=== PATIENT | female | born 1945 | race African-American/Black ===

== ENCOUNTER 2017-06-03 18:52 | Emergency (ER) | payer OTHER ==
[~2017-06-03] VITALS: Ht 185.4 cm; Wt 66.0 kg
[2017-06-03 19:35] VITALS: BP 127/75
== END 2017-06-03 20:00 | disposition home or self-care (01) ==
LOC: ER 18:52
DX: S39.012A Strain of muscle, fascia and tendon of lower back, initial encounter (principal); M79.602 Pain in left arm; Y92.410 Unspecified street and highway as the place of occurrence of the external cause; E11.9 Type 2 diabetes mellitus without complications; Z88.0 Allergy status to penicillin
CPT/HCPCS: 99282

== ENCOUNTER 2017-11-07 15:30 | Emergency (ER) | payer OTHER ==
[~2017-11-07] VITALS: Ht 167.6 cm; Wt 65.0 kg
[2017-11-07 16:21] LABS: BASOPHILS % 0.8 % (0.0-2.0); EOSINOPHILS % 0.4 % (0.0-5.0); HEMATOCRIT. 40.3 % (36.0-48.0); LYMPHOCYTES % 32.7 % (20.0-50.0); MEAN CORPUSCULAR HEMOGLOBIN 23.6 pg (28.0-32.0); MEAN CORPUSCULAR VOLUME 73.3 fL (81.0-99.0); MEAN PLATELET VOLUME 9.1 fl (7.4-10.4); MONOCYTES % 5.4 % (2.0-8.0); NEUTROPHILS % 60.7 % (40.0-76.0); PLATELET 199 x1000/uL (130-400); RED CELL DISTRIBUTION WIDTH 16.3 % (11.6-14.6)
[2017-11-07 16:27] LABS: PROTHROMBIN TIME 10.6 sec (9.4-11.6)
[2017-11-07 16:29] LABS: CHLORIDE 109 mEq/L (98-107)
[2017-11-07 18:16] VITALS: BP 136/87
== END 2017-11-07 18:20 | disposition home or self-care (01) ==
LOC: ER 15:54
DX: R53.1 Weakness (principal); E78.00 Pure hypercholesterolemia, unspecified; E11.9 Type 2 diabetes mellitus without complications; I10 Essential (primary) hypertension; Z88.0 Allergy status to penicillin; Z86.73 Personal history of transient ischemic attack (TIA), and cerebral infarction without residual deficits
CPT/HCPCS: 36415; 70450; 80053; 83880; 84484; 85025; 85610; 93005; 99285

== ENCOUNTER 2018-02-20 19:23 | Emergency (ER) | payer OTHER ==
[~2018-02-20] VITALS: Ht 167.6 cm; Wt 63.6 kg
[2018-02-20 20:23] VITALS: BP 147/94
== END 2018-02-20 20:23 | disposition home or self-care (01) ==
LOC: ER 19:23
DX: R20.2 Paresthesia of skin (principal); I10 Essential (primary) hypertension; E11.9 Type 2 diabetes mellitus without complications; Z86.73 Personal history of transient ischemic attack (TIA), and cerebral infarction without residual deficits; Z88.0 Allergy status to penicillin
CPT/HCPCS: 99283

== ENCOUNTER 2022-11-26 21:04 | Emergency (ER) | payer OTHER ==
[~2022-11-26] VITALS: Ht 167.6 cm; Wt 64.8 kg
[2022-11-26 21:48] VITALS: BP 143/73
[2022-11-27] MEDS ORDERED: LIDOCAINE HCL/PF 1% 10 MG/ML 5ML VIAL INFIL ONE (01:15)
[2022-11-27] MEDS ORDERED: BACITRACIN ZINC OINT UDPKT TOP ONE (01:15)
[2022-11-27] MEDS ORDERED: TOPUD MT (02:06)
== END 2022-11-27 02:24 | disposition home or self-care (01) ==
LOC: ER 21:04
DX: S61.012A Laceration without foreign body of left thumb without damage to nail, initial encounter (principal); E11.9 Type 2 diabetes mellitus without complications; Z88.0 Allergy status to penicillin; W26.0XXA Contact with knife, initial encounter; Y93.89 Activity, other specified; Y92.89 Other specified places as the place of occurrence of the external cause; Y99.8 Other external cause status
CPT/HCPCS: 12001; 99282; J3490

== ENCOUNTER 2022-12-12 08:33 | Emergency (ER) | payer OTHER ==
[~2022-12-12] VITALS: Ht 167.6 cm; Wt 65.0 kg
[~2022-12-12 08:33] MED LIST: TOPUD MT
[2022-12-12 08:40] VITALS: BP 148/81
== END 2022-12-12 09:25 | disposition home or self-care (01) ==
LOC: ER 08:33
DX: Z48.00 Encounter for change or removal of nonsurgical wound dressing (principal); E11.9 Type 2 diabetes mellitus without complications; Z88.0 Allergy status to penicillin
CPT/HCPCS: 99281